=== PATIENT | male | born 1945 | race Caucasian/White ===

== ENCOUNTER 2017-11-12 16:12 | Emergency (ER) | payer MEDICARE, BC ==
[2017-11-12 16:17] VITALS: BP 151/90
[2017-11-12] MEDS ORDERED: LIT300L FT (16:23)
[2017-11-12] MEDS ORDERED: LOSA50TA72 PO (16:23)
--- NOTE | 2017-11-12 16:33 | ER Report ---
History and Physical Time Seen By MD: 16:27 Hx. of Stated Complaint: MISSED THE CURB, FELL BACK ONTO HEAD HPI/ROS CHIEF COMPLAINT: Fall HISTORY OF PRESENT ILLNESS: Patient is a 72-year-old male who at stepped up on a step fell backwards hitting his head patient is not on blood thinners had no loss of consciousness has a small laceration back precipitate had some mild dizziness no neck pain or discomfort no chest pain or shortness breath was a symptomatically prior to the fall REVIEW OF SYSTEMS: Respiratory: No cough, no dyspnea. Cardiovascular: No chest pain, no palpitations. Gastrointestinal: No vomiting, no abdominal pain. Musculoskeletal: No back pain. Allergies: Coded Allergies: lisinopril (Verified Allergy, Unknown, 11/12/17) Home Meds Reported Medications Oxbow Carbonate (LITHIUM) 300 Mg/5 Ml Soln, 300 MG FT 11/12/17 Losartan Potassium (LOSARTAN POTASSIUM) 50 Mg Tablet, 50 MG PO QDAY 11/12/17 Reviewed Nurses Notes: Yes Old Medical Records Reviewed: Yes Constitutional Vital Sign - Last 24 Hours 11/12/17 16:17 Temp 98.2 Pulse 73 Resp 18 B/P (MAP) 151/90 Pulse Ox 90 O2 Delivery Nasal Cannula Physical Exam General Appearance: The patient is alert, has no immediate need for airway protection and no current signs of toxicity. [ ] Eyes: Pupils equal and round no injection. Respiratory: Chest is non tender, lungs are clear to auscultation. Cardiac: regular rate and rhythm [ ] Gastrointestinal: Abdomen is soft and non tender, no masses, bowel sounds normal. Musculoskeletal: Neck: Neck is supple and non tender. Extremities have full range of motion and are non tender. Skin: No rashes or lesions. 1.5 [place] posterior left occipital [ ] DIFFERENTIAL DIAGNOSIS: After history and physical exam differential diagnosis was considered for closed head injury laceration Medical Decision Making ED Course/Re-evaluation ED Course ED clinical course medical decision make his 72-year-old male fell struck the back was had no LOC CAT scan showed nothing acute intracranial head a 2 cm laceration closed with 3 pablo patient be discharged back to his home follow- up diagnosis laceration closed head injury Decision to Disposition Date: Nov 12, 2017 Decision to Disposition Time: 17:51 Depart Departure Latest Vital Signs Vital Signs Date Time Temp Pulse Resp B/P (MAP) Pulse Ox O2 Delivery O2 Flow Rate FiO2 11/12/17 16:17 98.2 73 18 151/90 90 Nasal Cannula Impression: Primary Impression: Laceration Condition: Improved Disposition: HOME OR SELF-CARE Patient Instructions: Orlin (DC) BLANQUITA FAYE MD Nov 12, 2017 16:33
--- NOTE | 2017-11-12 17:20 | RADIOLOGY IMAGING REPORT ---
FACILITY: [facility] PATIENT NAME: Sean Jones : 1945 MR: [id number] V: [id number] EXAM DATE: ORDERING PHYSICIAN: BLANQUITA FAYE TECHNOLOGIST: Location: [facility] Patient: Sean Jones : 1945 Visit/Account:[id number] Date of Sevice: 11/12/2017 HEAD W/O CONTRAST Provided history: fall Additional pertinent history: none TECHNIQUE: Imaging was obtained from the skull base through the vertex without intravenous contrast. Source images were reformatted in the coronal sagittal planes. One of the following dose optimization techniques was utilized in the performance of this exam: Autom ated exposure control; adjustment of the mA and/or kV according to the patient's size; or use of an i terative reconstruction technique. Specific details can be referenced in the facility's radiology CT exam operational policy. Additional imaging: none COMPARISON STUDIES: No relevant priors FINDINGS: Brain volume: Normal Acute cortical ischemia: None Chronic cortical and ganglionic ischemia: none significant Hemorrhage: None Masses / edema: None White matter: Scattered periventricular and deep white matter hypodensities, nonspecific. Vessels: Moderate carotid siphon calcification. No hyperdense thrombi. Extra-axial: None significant Calvarium / scalp: Skin abrasion and hematoma over the left parietal bone. No subjacent fracture. Skull base: negative Visualized sinuses / orbits: negative IMPRESSION: Normal CT of the brain. No evidence of mass, acute ischemia or hemorrhage. Posterior left scalp contusion without subjacent calvarial fracture. Report Dictated By: Beto Gutierrez MD at 11/12/2017 5:15 PM Report E-Signed By: Beto Gutierrez MD at 11/12/2017 5:17 PM WSN:[id number]
== END 2017-11-12 18:21 | disposition home or self-care (01) ==
LOC: ER 16:16
DX: S01.01XA Laceration without foreign body of scalp, initial encounter (principal)
CPT/HCPCS: 70450; 99284

== ENCOUNTER → 2017-11-12 | Outpatient (CLI) | payer MEDICARE, BC ==
[~2017-11-12] MED LIST: LIT300L FT; LOSA50TA74 PO
== END ==
LOC: AMB 15:49
PROVIDERS: ATTEND Nurse Practitioner
DX: S09.90XA Unspecified injury of head, initial encounter (principal); R51 Headache; S01.01XA Laceration without foreign body of scalp, initial encounter; W01.198A Fall on same level from slipping, tripping and stumbling with subsequent striking against other object, initial encounter
CPT/HCPCS: A0425; A0427